=== PATIENT | male | born 1960 | race Caucasian/White ===

== ENCOUNTER 2017-07-15 06:38 | Emergency (ER) | payer MEDICARE, MEDICAID ==
[~2017-07-15] VITALS: Ht 180.3 cm; Wt 96.0 kg
[~2017-07-15 06:38] MED LIST: CYCL-394 PO; celebrex; levothyroxine; lipitor; prevacid
[2017-07-15] MEDS ORDERED: HYDR28CR14 TOP (07:28)
[2017-07-15 07:34] VITALS: BP 169/100
== END 2017-07-15 07:36 | disposition home or self-care (01) ==
LOC: ER 06:39
DX: N48.1 Balanitis (principal); F32.9 Major depressive disorder, single episode, unspecified; G89.29 Other chronic pain; Z91.011 Allergy to milk products
CPT/HCPCS: 99282

== ENCOUNTER 2022-02-21 10:38 | Emergency (ER) | payer MEDICARE, MEDICAID ==
[~2022-02-21] VITALS: Ht 180.3 cm; Wt 86.4 kg
[~2022-02-21 10:38] MED LIST changes: +HYDR28CR14 TOP
[2022-02-21 10:42] VITALS: BP 142/90
[2022-02-21] MEDS ORDERED: ketorolac trometh inj. 60 MG/2 ML VIAL IM ONE (13:45)
[2022-02-21] MEDS ORDERED: IBUP-1986 PO (13:47)
== END 2022-02-21 14:09 | disposition home or self-care (01) ==
LOC: ER 10:39
DX: S93.401A Sprain of unspecified ligament of right ankle, initial encounter (principal); G89.29 Other chronic pain; Z90.49 Acquired absence of other specified parts of digestive tract; Z91.011 Allergy to milk products; Z79.899 Other long term (current) drug therapy; X58.XXXA Exposure to other specified factors, initial encounter; Y93.89 Activity, other specified; Y92.89 Other specified places as the place of occurrence of the external cause; Y99.8 Other external cause status
CPT/HCPCS: 73630; 96372; 99283; J1885; L4360